=== PATIENT | female | born 1955 | race Caucasian/White ===

== ENCOUNTER → 2021-07-11 | Outpatient (CLI) | payer OTHER ==
[~2021-07-11] MED LIST: TRIAMTERENE-HC1 EAC2 PO
--- NOTE | 2021-07-20 14:31 | MCT ---
[facility] [place] [address] METHACHOLINE CHALLENGE TEST Name: BRIAN MEZA Room #: REG [facility] Wilmer#: [id number] Admission: 07/11/21 Attend Phys: Ron Agosto MD Discharge: Date of : 53 Report #: [id number] THIS REPORT FOR: //name// COPIES FOR: AGE: 66 SEX/RACE: F/C Height: 64 in Exam Date: 07/11/21 Weight: 189 lbs BTPS: X >> PRE BRONCHODILATOR: PREDICTED BEST %PRED FORCED VITAL CAPACITY (FRC) 2.90 L 2.54 LPM 88 % FORCED EXP VOL/SEC (FEV1) 2.09 L 2.14 FEV/FVC 103 % MAX MID-EXP FLOW (FEF 25-75) 2.38 L/SEC 2.55 L/SEC 107 % PEAK EXP FLOW RATE (FEF MAX) 5.55 L/MIN 4.73 L/MIN MED-VC RATIO (FEF 50/FEF 50) .09 Baseline: Phenol Saline Level 1: 0.025 mg/ml BEST %PRED %CHANGE BEST %PRED %CHANGE FVC 2.58 L 89 % 2 % FVC 2.55 L 88 % -1 % FEV1 2.11 L 101 % -1 % FEV1 2.03 L 97 % -4 % Level 2: 0.25 mg/ml Level 3: 2.5 mg/ml BEST %PRED %CHANGE BEST %PRED %CHANGE FVC 2.51 L 87 % -3 % FVC 2.53 L 87 % -2 % FEV1 2.07 L 99 % -2 % FEV1 2.06 L 99 % -3 % . Level 4: 10 mg/ml Level 5: 25 mg/ml BEST %PRED %CHANGE BEST %PRED %CHANGE FVC 2.55 L 88 % -1 % FVC 2.48 L 86 % -4 % FEV1 2.08 L 99 % -2 % FEV1 2.04 L 98 % -3 % Post Bronchodilator: 1st Treatment Post Bronchodilator: 2nd Treatment BEST %PRED %CHANGE BEST %PRED %CHANGE FVC 2.54 L 88 % -2 % FVC L % % FEV1 2.14 L 102 % 1 % FEV1 L % % Post Bronchodilator: 3rd Treatment BEST %PRED %CHANGE FVC L % % [facility] [address] [place] [address] METHACHOLINE CHALLENGE TEST Name: BRIAN MEZA Room #: REG [facility] Wilmer#: [id number] Admission: 07/11/21 Attend Phys: Ron Agosto MD Discharge: Date of : 53 Report #: [id number] FEV1 L % % >> INTERPRETATION: DATE OF SERVICE: 07/11/2021 PROCEDURE: Methacholine challenge test. ATTENDING PHYSICIAN: Dr. Ron Agosto. FINDINGS: Methacholine challenge test was completed in a routine fashion. FEV1 baseline was 2.11 liters (101% predicted). With increasing methacholine levels, there was no significant response to the challenges. Her FEV1 did not decline significantly. FEV1 sanjiv was 2.04 liters. IMPRESSION: This is a negative methacholine challenge test. <ELECTRONICALLY SIGNED> By: Neri Baptiste MD 07/20/21 1431 Neri Baptiste MD /nt
== END ==
LOC: PUL 11:15
PROVIDERS: ATTEND Internal Medicine
DX: R06.02 Shortness of breath (principal); Z20.822 Contact with and (suspected) exposure to COVID-19

== ENCOUNTER → 2021-07-24 | Outpatient (CLI) | payer OTHER ==
--- NOTE | 2021-08-13 13:39 | PFR/MVV ---
[facility] [place] [address] PULMONARY FUNCTION MVV/REPORT Name: BRIAN MEZA Room #: REG [facility].#: [id number] Admission: 07/24/21 Attend Phys: Ron Agosto MD Discharge: Date of : 53 Report #: [id number] THIS REPORT FOR: //name// >> SPIROMETRY: (BTPS) Height: 64 in cm Weight: 187 lbs kg Exam Date: 07/24/21 PRE-RX POST-RX PRED BEST %PRED BEST %PRED %CHG FVC LITERS . 2.90 . 2.66 . 92 . 2.69 . 93 . 1 FEV1 LITERS . 2.09 . 2.19 . 105 . 2.28 . 109 . 4 FEV1/FVC % . 72 . 82 . 114 . 85 . 117 . 3 MUX73-59% L/Sec . 2.38 . 2.79 . 117 . 3.11 . 131 . 11 PEF L/SEC . 3.19 . 4.06 . 127 . 4.34 . 136 . 7 FEF50/FIF50 UNITLESS . 5.55 . 5.66 . 102 . 5.48 . 99 . -3 MVV L/Min . 86 . 63 . 73 f 1/Min . . . >> LUNG VOLUMES: (BTPS) PRE-RX POST-RX PRED AVG %PRED AVG %PRED %CHG VC Liters . 2.90 . 3.39 . 117 . . . TLC Liters . 4.84 . 3.56 . 74 . . . RV Liters . 1.91 . 0.17 . 9 . . . RV/TLC % . 39 . 5 . 12 . . . FRC PL Liters . 2.46 . 0.71 . 29 . . . FRC N2 Liters . 2.46 . . . . . ERV Liters . 0.98 . 0.36 . 37 . . . IC Liters . 1.96 . 2.85 . 146 . . . >> DIFFUSION: DLCO ml/Min/mmHg . 22.2 . 15.9 . 72 . . . DL Elyssa ml/Min/mmHg . 22.2 . 15.9 . 72 . . . DLCO/VA ml/Min/mmHg . 3.60 . 4.64 . 129 . . . VA Liters . . 3.42 . . . . COMMENTS: COMMENTS: >> RESISTANCE: [facility] [address] [place] [address] PULMONARY FUNCTION MVV/REPORT Name: BRIAN MEZA Room #: [facility].#: [id number] Admission: 07/24/21 Attend Phys: Ron Agosto MD Discharge: Date of : 53 Report #: [id number] PRE-RX PRED AVG %PRED Raw Total cmH20/L/Sec . . 6.43 . Raw Insp cmH20/L/Sec . . 3.31 . Raw Exp cmH20/L/Sec . . 9.49 . Raw cmH20/L/Sec . 1.58 . 4.54 . 288 Gaw L/Sec/cmH20 . 0.590 . 0.221 . 37 sRaw cmH20 Sec . 3.88 . 9.79 . 253 sGaw l/cmH20 Sec . 0.258 . 0.102 . 40 Vtq Liters . . 2.16 . # = OUTSIDE 95% CONFIDENCE INTERVAL CALIBRATION: PRED: 3.00 ACTUAL: EXP 3.01 INSP 3.02 [facility]-[id number] [place] [id number] N-[id number] >> INTERPRETATION/IMPRESSION: DATE OF SERVICE: 07/24/2021 ____. Diffusion capacity is normal. <ELECTRONICALLY SIGNED> By: Neri Baptiste MD 08/13/21 1339 Neri Baptiste MD /nt
== END ==
LOC: PUL 08:56
PROVIDERS: ATTEND Internal Medicine
DX: R06.02 Shortness of breath (principal); Z20.822 Contact with and (suspected) exposure to COVID-19